=== PATIENT | male | born 1965 | race Caucasian/White ===

== ENCOUNTER 2017-03-22 18:37 | Emergency (ER) | payer OTHER ==
[~2017-03-22] VITALS: Ht 188 cm; Wt 99.8 kg
[~2017-03-22 18:37] MED LIST: FLEXERIL10 MG PO; METAMUCIL POWD PO; NEURONTIN100 MG PO; NORCO 10-325 T1 EACH PO; NORCO 5-325 TA1 EACH PO; PREDNISOLON5 MG/5 M1 PO; TYLENOL325 MG PO
== END 2017-03-22 19:42 | disposition home or self-care (01) ==
LOC: ED 18:37
DX: S60.851A Superficial foreign body of right wrist, initial encounter (principal); K21.9 Gastro-esophageal reflux disease without esophagitis; Z87.891 Personal history of nicotine dependence; W45.8XXA Other foreign body or object entering through skin, initial encounter
CPT/HCPCS: 73110; 90471; 90715; 99283

== ENCOUNTER 2021-06-23 17:46 | Emergency (ER) | payer OTHER ==
[~2021-06-23] VITALS: Ht 188 cm; Wt 108.9 kg
--- OUTSIDE RECORDS SUMMARY | 2021-06-23 17:56 | XMS ---
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 Debbie has no Care Guidelines for this patient. [place] VISIT COUNT (12 MO.) 1 [facility] TOTAL 1 NOTE: Visits indicate total known visits. ED/C VISIT TRACKING (12 MO.) 06/23/2021 17:48 [facility] [place] TYPE: Emergency COMPLAINT: - BACK INJURY INPATIENT VISIT TRACKING (12 MO.) No inpatient visits to display in this time frame [email or web address]
[2021-06-23] MEDS ORDERED: CYCLOBENZAPRINE10 MG PO (19:11)
== END 2021-06-23 19:36 | disposition home or self-care (01) ==
LOC: ED 17:46
DX: S39.012A Strain of muscle, fascia and tendon of lower back, initial encounter (principal); X58.XXXA Exposure to other specified factors, initial encounter; K21.9 Gastro-esophageal reflux disease without esophagitis; Z87.891 Personal history of nicotine dependence
CPT/HCPCS: 99283

== ENCOUNTER 2021-11-10 08:52 | Emergency (ER) | payer OTHER ==
[~2021-11-10] VITALS: Ht 188 cm; Wt 104.3 kg
[~2021-11-10 08:52] MED LIST changes: +CYCLOBENZAPRINE10 MG PO
--- OUTSIDE RECORDS SUMMARY | 2021-11-10 09:04 | XMS ---
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 Debbie has no Care Guidelines for this patient. Care History Medical/Surgical 06/27/2021 [facility] - [facility] RECEIVED CASE MGMNT CONSULT- HELP PATIENT ESTABLISH CARE WITH A PROVIDER. - [facility] CALLED PATIENT - NO ANSWER - [facility] SENT NO PCP LETTER TO PATIENT E.D. VISIT COUNT (12 MO.) 2 [facility] TOTAL 2 NOTE: Visits indicate total known visits. ED/UCC VISIT TRACKING (12 MO.) 11/10/2021 08:57 [facility] [place] TYPE: Emergency COMPLAINT: - L KNEE INJURY 06/23/2021 17:48 [facility] [place] TYPE: Emergency COMPLAINT: - BACK INJURY DIAGNOSES: - Strain of muscle, fascia and tendon of lower back, initial encounter - Exposure to other specified factors, initial encounter - Gastro-esophageal reflux disease without esophagitis - Personal history of nicotine dependence - LOW BACK PAIN, UNSPECIFIED INPATIENT VISIT TRACKING (12 MO.) No inpatient visits to display in this time frame [email or web address]
== END 2021-11-10 14:09 | disposition home or self-care (01) ==
LOC: ED 08:52
DX: S83.92XA Sprain of unspecified site of left knee, initial encounter (principal); K21.9 Gastro-esophageal reflux disease without esophagitis; Z87.891 Personal history of nicotine dependence; Z79.899 Other long term (current) drug therapy; X50.9XXA Other and unspecified overexertion or strenuous movements or postures, initial encounter
CPT/HCPCS: 73560; 99283-25

== ENCOUNTER 2024-02-12 14:51 | Emergency (ER) | payer OTHER ==
[~2024-02-12] VITALS: Ht 188 cm; Wt 111.3 kg
[2024-02-12 15:26] VITALS: BP 149/92
== END 2024-02-12 15:42 ==
LOC: ED 14:51
DX: S61.011A Laceration without foreign body of right thumb without damage to nail, initial encounter (principal); K21.9 Gastro-esophageal reflux disease without esophagitis; W26.9XXA Contact with unspecified sharp object(s), initial encounter; Z87.891 Personal history of nicotine dependence
CPT/HCPCS: 12002; 99282-25